=== PATIENT | male | born 1960 | race Caucasian/White ===

== ENCOUNTER → 2023-09-08 11:41 | Outpatient (CLI) | payer OTHER, SELFPAY ==
--- NOTE | 2023-09-08 11:43 | DI.MRI.S_ITS ---
PROCEDURE: MR SHOULDER RT WO CON INDICATIONS: PAIN IN RT SHOULDER TECHNIQUE: Noncontrast oblique coronal T2 fast spin echo with fat saturation, oblique sagittal T1 spin echo and T2 fast spin echo with fat saturation, axial T1 spin echo and T2 fast spin echo with fat saturation through the shoulder. COMPARISON: [facility] [place], CR, XR SHOULDER 2+ VIEWS RIGHT, 08/12/2023, 11:53. FINDINGS: Image quality: Excellent. Rotator cuff: Mild to moderate supraspinatus and infraspinatus tendinosis. Teres minor tendon is intact. There is moderate subscapularis tendinosis. The rotator cuff musculature is normal in bulk. Bones and bursae: No acute trabecular bone injury or fracture. Small chronic traction cystic changes are seen at the posterior humeral head. No focal glenohumeral cartilage defect. Moderate to severe degenerative changes are seen at the acromioclavicular joint with subchondral cystic changes, subchondral edema, and marginal osteophyte formation. A large amount of fluid is seen in the subacromial/subdeltoid bursa with synovial hypertrophy. No significant glenohumeral effusion. Capsule and soft tissues: Nondisplaced tearing of the superior labrum extending into the anterior superior and posterior superior labrum. Proximal biceps long head tendon is intact. There is thickening and intermediate signal intensity within the inferior glenohumeral ligament without discontinuity of ligament fibers seen. There is effacement of the normal fat signal in the rotator interval. IMPRESSION: 1. Large subacromial/subdeltoid bursal effusion or bursitis. 2. Moderate to severe acromioclavicular joint osteoarthrosis. 3. Nondisplaced tearing of the superior labrum from anterior superior to posterior superior. 4. [id number] rotator cuff tendinosis without a significant rotator cuff tendon tear. 5. Partial effacement of the rotator interval fat and mild thickening and intermediate signal within the inferior glenohumeral ligament are nonspecific, but can be seen in the setting of the clinical syndrome of adhesive capsulitis. Approved by: Martínez Edwards M.D. on 09/08/2023 at 16:57
== END ==
PROVIDERS: Referring Provider Orthopaedic Surgery; Visit Provider Orthopaedic Surgery
DX: S43.431A Superior glenoid labrum lesion of right shoulder, initial encounter (principal); M19.011 Primary osteoarthritis, right shoulder; M25.511 Pain in right shoulder
CPT/HCPCS: 73221

== ENCOUNTER → 2025-01-04 11:13 | Outpatient (CLI) | payer MEDICARE, OTHER, SELFPAY ==
--- NOTE | 2025-01-04 11:14 | DI.MRI.S_ITS ---
PROCEDURE: MR SHOULDER LT WO CON INDICATIONS: eval for prox bicep tendon TECHNIQUE: Noncontrast oblique coronal T2 fast spin echo with fat saturation, oblique sagittal T1 spin echo and T2 fast spin echo with fat saturation, axial T1 spin echo and T2 fast spin echo with fat saturation through the shoulder. COMPARISON: [facility], MR, MR SHOULDER RT WO CON, 09/08/2023, 11:51. FINDINGS: Quality: Adequate. Tendons: Rotator cuff tendons: Partial thickness partial width bursal sided insertional tear of the supraspinatus tendon greater than 50% thickness with no retraction. Long head of biceps tendon: Intact. No dislocation. Muscles: No disproportionate fatty degeneration of the rotator cuff musculature. Acromioclavicular joint: Severe degenerative changes with pericapsular edema and adjacent marrow edema. Glenohumeral joint: Labrum: Previously seen superior labral tear not as well demonstrated on the current examination, possibly due to nondistended glenohumeral joint.. Cartilage: No focal defect. Fluid: No effusion. Capsule: No pericapsular inflammation or scarring. Alignment: No dislocation. Bursa: Subacromial/subdeltoid bursa: Trace fluid Subcoracoid bursa: Nondistended. Bones: No fracture. IMPRESSION: Acute on chronic severe acromioclavicular arthropathy . High-grade partial-thickness bursal sided supraspinatus tendon tear. Mild subacromial/subdeltoid bursitis. Dictated by: Emigdio Cash M.D. on 01/04/2025 at 15:03 Approved by: Emigdio Cash M.D. on 01/04/2025 at 15:35
== END ==
LOC: MRI 11:14
PROVIDERS: PCP Internal Medicine; Referring Provider Internal Medicine; Visit Provider Orthopaedic Surgery
DX: M25.512 Pain in left shoulder (principal); S43.402A Unspecified sprain of left shoulder joint, initial encounter; M75.112 Incomplete rotator cuff tear or rupture of left shoulder, not specified as traumatic; M75.52 Bursitis of left shoulder; M19.012 Primary osteoarthritis, left shoulder
CPT/HCPCS: 73221

== ENCOUNTER 2025-03-12 17:52 | Emergency (ER) | payer MEDICARE, OTHER, SELFPAY ==
[2025-03-12 18:25] VITALS: BP 154/78; PULSE 97; RESP 18; TEMP 37.1; O2SAT 98; BMI 26.4
--- NOTE | 2025-03-12 18:33 | DI.CT.S_ITS ---
PROCEDURE: CT HEAD/BRAIN WO CON INDICATIONS: Trauma TECHNIQUE: Noncontrast 4.5 mm thick angled axial sections acquired from the foramen magnum to the vertex, with coronal and sagittal reformats. For radiation dose reduction, the following was used: automated exposure control, adjustment of mA and/or kV according to patient size. COMPARISON: [facility], CT, CT CERVICAL SPINE WO CON, 03/12/2025, 18:37. [facility], CT, CT FACIAL BONES WO CON, 03/12/2025, 18:37. FINDINGS: Image quality: Diagnostic. CSF spaces: Basal cisterns are patent. No extra-axial fluid collections. The ventricles are symmetric in size and shape. Brain: No intracranial bleeds or mass effect. There is cerebral volume loss, with resultant ventricular and sulcal prominence. There are periventricular and deep white matter chronic small vessel ischemic changes. There is intracranial internal carotid artery atherosclerosis. Skull and face: Mild soft tissue swelling can be seen within the medial right periorbital region. No displaced fracture is seen. No significant abnormality can be seen within the right sikhism region. Calvarium and visualized facial bones appear intact, without suspicious lesions. Sinuses: Visualized sinuses and mastoids are clear. IMPRESSION: Mild soft tissue swelling can be seen within the medial right periorbital region. No acute intracranial hemorrhage is seen. No acute intracranial pathology. Dictated by: Jerrod Fernandez M.D. on 03/12/2025 at 18:12 Approved by: Jerrod Fernandez M.D. on 03/12/2025 at 18:13
--- NOTE | 2025-03-12 18:33 | DI.CT.S_ITS ---
PROCEDURE: CT FACIAL BONES WO CON INDICATIONS: right sided face trauma TECHNIQUE: Noncontrast 2.5 mm thick axial images acquired from the mandible through the frontal sinuses, with coronal and sagittal reformatting. For radiation dose reduction, the following was used: automated exposure control, adjustment of mA and/or kV according to patient size. COMPARISON: [facility], CT, CT CERVICAL SPINE WO CON, 03/12/2025, 18:37. [facility], CT, CT HEAD/BRAIN WO CON, 03/12/2025, 18:37. FINDINGS: Image quality: Excellent. Bones and teeth: Orbital pak are intact. Sinus pak show no fracture or deformity. Nasal bones and septum are intact. Visualized portions of the mandible demonstrate no fractures or subluxation. Zygomatic arches are intact. Pterygoid plates are intact. Visualized portions of the skull base and auditory canals are intact. Sinuses: Paranasal sinuses are aerated, without fluid levels, mucosal thickening, or mucoceles. Mastoid air cells are aerated. Soft tissues: Soft tissue swelling can be seen within the right medial periorbital region. Vascular: Visualized vascular structures appear normal in the absence of contrast. Bony vascular foramina and canals are intact. IMPRESSION: Soft tissue swelling is seen within the right medial periorbital region. No associated fracture is seen. Dictated by: Jerrod Fernandez M.D. on 03/12/2025 at 18:14 Approved by: Jerrod Fernandez M.D. on 03/12/2025 at 18:15
--- NOTE | 2025-03-12 18:34 | DI.CT.S_ITS ---
PROCEDURE: CT CERVICAL SPINE WO CON INDICATIONS: trauma TECHNIQUE: Noncontrast 3 mm thick sections acquired from the skull base to the T4 level. Sagittal and coronal reformats were then constructed. For radiation dose reduction, the following was used: automated exposure control, adjustment of mA and/or kV according to patient size. COMPARISON: [facility], CT, CT FACIAL BONES WO CON, 03/12/2025, 18:37. [facility], CT, CT HEAD/BRAIN WO CON, 03/12/2025, 18:37. FINDINGS: Image quality: This examination is somewhat limited by quantum mottle artifact. Bones: No fractures or dislocations. Visualized superior ribs are intact. Moderate generalized cervical spine degenerative change is seen. Soft tissues: Prevertebral soft tissues are normal in thickness. No paravertebral hematomas. No apical pneumothoraces. Atherosclerotic calcification is noted. IMPRESSION: No displaced fracture or traumatic subluxation. Moderate generalized cervical spine degenerative changes are noted. Dictated by: Jerrod Fernandez M.D. on 03/12/2025 at 18:15 Approved by: Jerrod Fernandez M.D. on 03/12/2025 at 18:16
--- NOTE | 2025-03-12 19:32 | ED_ITS ---
HPI - Fall General Chief Complaint: Fall Stated Complaint: GLF, hit head Time Seen by Provider: 03/12/25 18:33 Source: patient Mode of arrival: Family Vehicle History of Present Illness HPI Narrative: Patient is a 64-year-old male not on any blood thinners history of hyperlipidemia comes into the ED from home for evaluation of head strike, states that he was drinking some alcohol yesterday, states that he had a mechanical trip and fall and hit the side of his head on an [place], does have a black eye, no visual disturbance, states that he has felt slightly hung over therefore came into the ED to be evaluated. On my exam he has NIH of 0 no focal deficits he has no other symptoms at this time. Related Data Home Medications ?Medication ?Instructions ?Recorded ?Confirmed atorvastatin 40 mg tablet 40 mg PO DAILY 12/20/2402/11 lisinopril 30 mg tablet 30 mg PO DAILY 12/20/2402/11 sertraline 100 mg tablet 100 mg PO DAILY 12/20/2403/07 tadalafil 5 mg tablet 5 mg PO DAILY BPH 12/27/2404/23/24 Previous Rx's ?Medication ?Instructions ?Recorded meloxicam 15 mg tablet 15 mg PO DAILY #30 tabs 12/12 10/05 Allergies Allergy/AdvReac Type Severity Reaction Status Date / Time No Known Drug Allergies Allergy Verified 03/12/25 18:24 Review of Systems Review of Systems Narrative: General: Denies fever, chills, weight loss HEENT: Positive head strike, Denies headache, eye drainage, eye irritation, sore throat, voice change Cardiovascular: Denies any chest pain, palpitations, tachycardia Respiratory: Denies any shortness of breath, cough, wheeze, stridor GI/: Denies any abdominal pain, nausea, vomiting, diarrhea, bright red blood per rectum, melanotic stools, urinary frequency, urinary retention, dysuria, hematuria MSK: Denies any joint pain, muscle pains, swelling Skin: Denies any rashes, lesions, discoloration Neuro: Denies any headache, lightheadedness, dizziness, fainting, weakness Psych: Denies SI/HI Patient History Social History Smoking Status: Never smoker Smoking Status: Never smoker Exam Narrative Exam Narrative: General: Cooperative, well-developed, not in acute distress HEENT: Ecchymosis noted to the right eye, tenderness to palpation but no palpable step-offs, PERRLA, normal sclera, eyelids normal Neck: Active full range of motion, atraumatic Chest: Normal to inspection, negative crepitus, no overlying erythema ecchymosis Respiratory: Normal respiratory effort, not in acute respiratory distress, clear to auscultation bilaterally negative cough, wheeze, tachypnea, rhonchi, rales Cardiology: Regular rate rhythm negative gallop, murmur, rubs GI/: No tenderness to palpation, soft, non rigid, normal to inspection, exam deferred MSK: Full active range of motion in all 4 extremities, atraumatic, no tenderness to palpation of any bony prominences Skin: No rashes or lesions noted Neuro: Alert awake oriented x3, moves all 4 extremities spontaneously, cranial nerves intact, able to answer all questions appropriately follows commands appropriately Psych: Cooperative, negative suicidal or homicidal ideations Initial Vital Signs Initial Vital Signs: Vital Signs Temperature 98.8 F 03/12/25 18:25 Pulse Rate 97 H 03/12/25 18:25 Respiratory Rate 18 03/12/25 18:25 Blood Pressure 154/78 H 03/12/25 18:25 Pulse Oximetry 98 03/12/25 18:25 Oxygen Delivery Method Room Air 03/12/25 18:25 Course Orders Ordered: ED Orders 03/12/25 18:33 CT facial bones wo con Stat CT head/brain wo con Stat 03/12/25 18:34 CT cervical spine wo con Stat Vital Signs Vital signs: Vital Signs - 8 hr 03/12/25 18:25 Temperature 98.8 F Pulse Rate 97 H Respiratory Rate 18 Blood Pressure 154/78 H Pulse Oximetry 98 Oxygen Delivery Method Room Air MDM - Fall MDM Narrative Medical decision making narrative: 64-year-old male with past medical history of hypertension hyperlipidemia not on any blood thinners comes into the ED from home for evaluation of mechanical trip and fall, states that he was drinking some alcohol drink a little ?too much and fell and hit the right side of his face on an [place], no LOC, states he woke up had bruising in his right eye and face, states that he did feel little hung over today, therefore came into the ED for evaluation treatment. On my exam he has ecchymosis to the right side of his face with mild tenderness to palpation of the area but no step-offs but neurovascularly intact otherwise, he has no tenderness to palpation of any other bony prominences, CT scan head and neck and face does not show any fractures just soft tissue swelling, she will be discharged home with strict return precautions verbalized understanding and agrees to being discharged home with outpatient follow up Discharge Plan Departure Patient Disposition: Home Clinical Impression: Closed head injury, Contusion of face Instructions: DI for Eye Contusion, DI for Contusion, DI for Closed Head Injury Activity Restrictions/Additional Instructions: Please follow up with your primary care doctor as needed, you may use ice for the next 2 days, he can use Motrin and/or Tylenol to help with any symptom Please read the discharge instructions sheet carefully and bring all papers to all doctor follow-up visits, as it may contain information that your doctor may want to see. Disease processes change and evolve, if your symptoms worsen or if you develop any new symptoms that are concerning to you please return for evaluation. Your evaluation today does not show any evidence of any life- threatening/serious illnesses requiring admission to the hospital or surgery. Please follow-up with your doctor for re-evaluation in approximately 1 day. Seek immediate medical attention for any worrisome symptoms. *If you do not have a primary care provider please contact the [facility] Resource line at [phone]. They will ask some questions about your medical history and help get you set up with a doctor in the community. Prescriptions: No Action atorvastatin 40 mg tablet 40 mg PO DAILY sertraline 100 mg tablet 100 mg PO DAILY lisinopril 30 mg tablet 30 mg PO DAILY tadalafil 5 mg tablet 5 mg PO DAILY meloxicam 15 mg tablet 15 mg PO DAILY Qty: 30 2RF Referrals: Joaquim Nguyễn MD [Primary Care Provider, Internal Medicine] Stand Alone Forms: Patient Portal/API
[2025-03-12 19:34] VITALS: BP 155/71; PULSE 94; RESP 16; O2SAT 98
== END 2025-03-12 19:44 | disposition home or self-care (01) ==
PROVIDERS: Emergency Provider Student in an Organized Health Care Education/Training Program; PCP Internal Medicine
DX: S09.8XXA Other specified injuries of head, initial encounter (principal); S00.11XA Contusion of right eyelid and periocular area, initial encounter; W01.0XXA Fall on same level from slipping, tripping and stumbling without subsequent striking against object, initial encounter
CPT/HCPCS: 70450; 70486; 72125; 99281; 99284